=== PATIENT | male | born 1955 | race Caucasian/White ===

== ENCOUNTER 2018-01-25 00:24 | Inpatient (IN) | payer OTHER ==
[2018-01-24 15:08] LABS: INR 1.02
[2018-01-25] VITALS (10 sets, daily range): BP systolic 108–143; BP diastolic 56–77
[~2018-01-25] VITALS: Ht 175.3 cm; Wt 123.8 kg
[~2018-01-25 00:24] MED LIST: ALLO-119 PO; AMLO-99 PO; ASPI-1471 PO; BUSP15TA69 PO; CHOL10005 PO; DULO60CA56 PO; FURO-45 PO; MULT-1335 PO; NEBI20TA4 PO; OLME40TA28 PO; POTA-23 PO; SPIR25TA80 PO; TEST200V IM
[2018-01-25] MEDS ORDERED: fentaNYL CITR 250 MCG/5 ML AMP ONE (08:08)
[2018-01-25] MEDS ORDERED: DEXAMETHASONE SOD PHOS 10MG/ML ONE (08:09)
[2018-01-25] MEDS ORDERED: ONDANSETRON 4 MG/2 ML VIAL ONE (08:09)
[2018-01-25] MEDS ORDERED: PROPOFOL EMUL(*) 10MG/ML 20 ML 40 ML ONE (08:09)
[2018-01-25] MEDS ORDERED: KETAMINE HCL 200 MG/20 ML MDV ONE (08:11)
[2018-01-25] MEDS ORDERED: EPINEPHrine HCL 1 MG/ML AMP ONE (08:12)
[2018-01-25] MEDS ORDERED: ROPIVACAINE 0.2% 20 ML VIAL ONE (08:12)
[2018-01-25] MEDS ORDERED: LIDOCAINE 2% JELLY 5 ML TUBE ONE (08:14)
[2018-01-25] MEDS ORDERED: MIDAZOLAM 2 MG/2 ML VIAL IVP PRN (08:30)
[2018-01-25] MEDS ORDERED: ROPIVACAINE 0.2% 400 MG/200ML 250 ML CONINFUS ONE (08:30)
[2018-01-25] MEDS ORDERED: CELECOXIB 200 MG CAP PO ONE (08:30)
[2018-01-25] MEDS ORDERED: ACETAMINOPHEN 500 MG TAB PO ONE (08:30)
[2018-01-25] MEDS ORDERED: CLINDAMYCIN(*) 900 MG/NS 50 ML 50 ML IVPB ONE (08:30)
[2018-01-25] MEDS ORDERED: LIDOCAINE/SOD BICARB 8.4% SYR ID ONE (08:30)
[2018-01-25] MEDS ORDERED: TRANEXAMIC AC 1000 MG/10ML SDV 1,000 MG in DEXTROSE 5% 50 ML BAG 50 ML IV ONE (08:30)
[2018-01-25] MEDS ORDERED: cloNIDine EPIDUR INJ 100MCG/ML 40 MCG, ROPIVACAINE 0.5% 20 ML VIAL 25 ML, EPINEPHrine H... INJ ONE (08:30)
[2018-01-25] MEDS ORDERED: PREGABALIN 150 MG CAPSULE PO ONE (08:30)
[2018-01-25] MEDS ORDERED: FAMOTIDINE 20 MG TAB PO ONE (08:30)
[2018-01-25] MEDS ORDERED: NORMOSOL R SOLN(*) 1000 ML BAG 1,000 ML IV PRN ×2 (08:30→12:15)
[2018-01-25] MEDS ORDERED: SUGAMMADEX SOD 200 MG/2 ML SDV ONE (09:03)
[2018-01-25] MEDS ORDERED: ROCURONIUM BROM 10 MG/ML 5 ML ONE (09:30)
[2018-01-25] MEDS ORDERED: hydrALAZINE HCL 20 MG/ML VIAL ONE (10:32)
[2018-01-25] MEDS ORDERED: PROMETHAZINE 25 MG/ML 1 ML AMP IVP PRN (12:15)
[2018-01-25] MEDS ORDERED: BISACODYL 10 MG SUPP PR PRN (12:15)
[2018-01-25] MEDS ORDERED: FLUSH 10 ML SYR IVP PRN (12:15)
[2018-01-25] MEDS ORDERED: ZOLPIDEM TARTRATE 5 MG TAB PO PRN (12:15)
[2018-01-25] MEDS ORDERED: MORPHINE 4 MG/ML SDV IVP PRN (12:15)
[2018-01-25] MEDS ORDERED: ONDANSETRON 4 MG/2 ML VIAL IVP PRN (12:15)
--- NOTE | 2018-01-25 12:36 | CARSON TKA ---
EVENT DATE: January 25, 2018 SURGEON: Poncho Quinteros MD ANESTHESIOLOGIST: Bryant Kendrick M.D. ANESTHESIA: Right adductor block with indwelling catheter and general anesthesia. We also utilized 50 mL of our Toradol/ropivacaine cocktail after the implantation and 1 gram of IV tranexamic acid ten prior prior to start and at the end of the implantation. TICKET WORKER: Sourav Iniguez PA-C PREOPERATIVE DIAGNOSIS Right knee degenerative joint disease with previous quad tendon tear and repair. POSTOPERATIVE DIAGNOSIS Right knee degenerative joint disease with previous quad tendon tear and repair. PROCEDURE PERFORMED Right total knee arthroplasty. IMPLANTS MicroPort medial pivot shift CS system with a 6 femur, 6 tibia, 14 mm CS insert , 8x35 symmetric patella and femur cut 6 degrees valgus 10 mm. We also utilized two packages of DonJoy cobalt blue cement and ZipLine Wound Closure System. SPECIMENS None. COMPLICATIONS None. BLOOD LOSS Less than 250 mL. OPERATION The patient received appropriate preoperative antibiotic, was brought to the OR , where Dr. Kendrick performed right adductor block with indwelling catheter and general anesthesia. Right thigh tourniquet was placed. Right lower extremity was prepped and draped in the usual sterile fashion. Midline incision was made followed by medial parapatellar arthrotomy. We encountered significant scarring through the quad tendon around the medial retinaculum and throughout the suprapatellar pouch and medial lateral gutters. It took quite some time to release the scar tissue. I then dissected subperiosteally along the medial tibial plateau to the level of the semimembranosus insertion. Hypertrophic fat pad and scarring was excised. Patella was released. We excised some of the hypertrophied posterior tissue including a small portion of the quad tendon to enable the patella to be slid laterally. The knee was brought up into flexion. The ACL and PCL were released subperiosteally by Bovie. The remaining articular cartilage was removed from the distal femoral condyle by sagittal saw. Step cut drill was utilized to broach the femoral canal. Distal femoral alignment guide was then positioned, setting at 10 mm, 6 degrees valgus. Cut was made with care taken to protect the soft tissues. 3-degree external rotation guide was then positioned, referencing the posterior condyles, epicondyles and anterior flange. Femur was sized to #5. Four-in-one cutting block was positioned, followed by Z retractors. Cuts were made. The tibia was then brought anterior in the femur with appropriate retractors. Step-cut drill was utilized to broach the tibial canal. Then we placed the intramedullary tibial guide. The eduardo was referenced for slope. We set this up 10 mm off the least involved lateral tibial plateau and assessed for rotation. We pinned the block into the place and placed the retractors to protect the soft tissue and made our cut. This was sized to #6. The stump of the ACL, PCL and medial and lateral meniscus were removed by Bovie. Posterior osteophytes were removed by curved osteotome. The capsule was elevated with Ontiveros elevator. Trial #6 tibial baseplate was then positioned, referencing from previous rotation and pinned into place. 12 mm insert was then placed and this was then replaced with 14 mm insert. #5 femur was placed. This achieved full extension and stability to varus and valgus stress and solid end point and anterior drawer. The knee was brought into full extension. The patella was size 25 mm. This was cut down to 8 mm with the guide and peg hole was positioned inferiorly medially. Peg holes were drilled and this accepted 8x35 symmetric trial. Peg hole was drilled for the femur followed by cutting with chip. The chip was then placed. Again, we had the aforementioned full extension, flexion limited only by body habitus but got 130 degrees. He had stability to varus/valgus stress. The patella tracked well and a stable anterior drawer. Patella, femur and tibial insert were removed. Appropriate retractors were placed and tower was placed, which was then cut, reamed and punched. This was then removed and bone putty placed in the distal femur. The knee was brought to full extension. We copiously irrigated by pulse lavage. Two packages of DonJoy cobalt blue cement were mixed. We injected 10 mL ropivacaine/Toradol cocktail into the posterior capsule. We copiously irrigated once again. We placed the knee in appropriate position and cemented the tibia. We placed the insert and femur. Excess cement was removed. The knee was brought into full extension with axial compression while we cemented the patella. The remaining 40 mL of cocktail was then injected into the distal quads. We then copiously irrigated by pulse lavage. After 14 minutes, the cement had hardened. Again, we had the aforementioned range of motion and stability. The knee was placed at 30 degrees. Arthrotomy was closed with #2 Vicryl followed by 2-0 Vicryl for subcutaneous tissue and with the knee at 45 degrees and after cleaning the wounds we placed a ZipLine Wound Closure System. Compressive was applied. Patient extubated and taken to recovery in stable condition. Hospitalist team to be consulted for medical management and anticoagulation, PT for rehab MTDD
--- NOTE | 2018-01-25 13:23 | RADIOLOGY IMAGING REPORT ---
FACILITY: [facility] - [place] PATIENT NAME: Samson Cristina : 1955 MR: [id number] V: [id number] EXAM DATE: ORDERING PHYSICIAN: YUAN FREEMAN TECHNOLOGIST: Location: [facility] Patient: Samson Cristina : 1955 Visit/Account:[id number] Date of Sevice: 01/25/2018 Exam type: KNEE LIMITED RIGHT History: POST OP Comparison: None. Findings: Two views the right knee demonstrate a right knee arthroplasty in good anatomic alignment. Soft tiss ue gas projects over the anterior aspect this postoperative knee IMPRESSION: 1. As above Report Dictated By: Ericka Pabon MD at 01/25/2018 1:17 PM Report E-Signed By: Ericka Pabon MD at 01/25/2018 1:18 PM WSN:[id number]
[2018-01-25] MEDS ORDERED: POTA20TA85 PO (13:56)
[2018-01-25] MEDS ORDERED: OLME1TAB63 PO (13:56)
[2018-01-25] MEDS ORDERED: SPIR50TA33 PO (13:56)
--- NOTE | 2018-01-25 15:19 | Hospitalist Consultation ---
History of Present Illness Requesting Physician Dr. Quinteros Reason for Consult Medical Management Chief Complaint s/p right total knee replacement History of Present Illness He was admitted s/p right total knee replacement. It is reported the surgery went well and without complication. History Problems: (1) Asthma Status: Chronic (2) Depression Status: Chronic (3) Hypertension Status: Chronic (4) MAURA (obstructive sleep apnea) Status: Chronic (5) Gout Status: Chronic Home Meds Reported Medications Olmesartan/Hydrochlorothiazide (BENICAR HCT 40-25 MG TABLET) 1 Each Tablet, 1 EACH PO DAILY 01/25/18 Potassium Chloride (KLOR-CON M20) 20 Meq Tab.er.prt, 3 TAB PO QDAY 01/25/18 Spironolactone (SPIRONOLACTONE) 50 Mg Tablet, 50 MG PO QDAY with dinner 01/25/18 Testosterone Cypionate (TESTOSTERONE CYPIONATE) 200 Mg/1 Ml Vial, 200 MG IM Q2WK , VIAL 01/14/18 Cholecalciferol (Vitamin D3) (VITAMIN D3) 1,000 Unit Tablet, 1000 UNIT PO, TAB 01/14/18 Multivitamin With Minerals (MULTIPLE VITAMIN) 1 Each Tablet, 1 EACH PO, TAB 01/14/18 Aspirin (ASPIR 81) 81 Mg Tablet.dr, 81 MG PO QDAY, TAB 01/14/18 Furosemide (FUROSEMIDE) 20 Mg Tablet, 1 TAB PO QDAY, TAB 01/14/18 Nebivolol Hcl (BYSTOLIC) 20 Mg Tablet, 20 MG PO DAILY 01/14/18 Duloxetine Hcl (CYMBALTA) 60 Mg Capsule.dr, 60 MG PO QDAY, #5 CAP 01/14/18 Amlodipine Besylate (AMLODIPINE BESYLATE) 10 Mg Tablet, 1 TAB PO QDAY, TAB 01/14/18 Buspirone Hcl (BUSPIRONE HCL) 15 Mg Tablet, 15 MG PO BID, #10 TAB 01/14/18 Allopurinol (ZYLOPRIM) 300 Mg Tablet, 300 MG PO QDAY, TAB 01/14/18 Discontinued Reported Medications Potassium Chloride (KLOR-CON 10) 10 Meq Tablet.er, 20 MEQ PO TID 01/14/18 Olmesartan Medoxomil (BENICAR) 40 Mg Tablet, 40 MG PO 01/14/18 Spironolactone (SPIRONOLACTONE) 25 Mg Tablet, 50 MG PO QDAY, TAB 01/14/18 Allergies: Coded Allergies: Penicillins (Verified Allergy, Unknown, 01/14/18) Uncoded Allergies: TAPE (Allergy, Unknown, 01/14/18) Patient History: FH: heart attack FATHER FH: hypertension FATHER MOTHER FH: ovarian cancer MOTHER Hx Smoking: Yes (QUIT 2006, 1PPD, FOR 30 YRS ) Smoking Status: Former Smoker Caffeine Intake: Coffee Caffeine/Cups Per Day: 2 CPD Hx Alcohol Use: Yes (ONE PER NIGHT ) Alcohol Used: Liquor Hx Substance Use Disorder: No Review of Systems All Systems Reviewed/Normal: Yes, Except as Noted Exam Vital Signs Vital Signs Date Time Temp Pulse Resp B/P (MAP) Pulse Ox O2 Delivery O2 Flow Rate FiO2 01/25/18 13:33 99.1 70 12 108/56 (73) 92 Nasal Cannula 3.0 General Appearance: Alert, Awake, No Acute Distress, Afebrile Neuro: No Gross deficits Cardiovascular: Regular Rate and Rhythm Respiratory: No Respiratory Distress, Clear to Auscultation Psych: Alert & Oriented X3 Assessment and Plan Problems: (1) Status post total right knee replacement Status: Acute Assessment & Plan: Followed by Dr. Quinteros. He will be placed on Aspirin for VTE prophylaxis. He has no history of DVT or PE. (2) Hypertension Status: Chronic Assessment & Plan: He is on chronic treatment with Amlodipine, Bystolic, Benicar, Lasix, and Spironolactone. The amlodipine and Bystolic have been restarted with hold parameters. Benicar, Lasix, and Spironolactone have been held at this time. (3) Asthma Status: Chronic Assessment & Plan: Exercise induced. Doesn't usually require treatment. (4) Depression Status: Chronic Assessment & Plan: He is on chronic treatment with Buspirone and Cymbalta. (5) Gout Status: Chronic Assessment & Plan: He is on chronic treatment with Allopurinol. (6) MAURA (obstructive sleep apnea) Status: Chronic Assessment & Plan: He is on chronic treatment with CPAP, with 2 liters bleed in. Venous Thromboembolism Antithrombotics Is Pt On Any Antithrombotics?: No Exam Sepsis Risk: No Definite Risk ALBINA SULLIVANP Jan 25, 2018 15:19
[2018-01-25] MEDS: ACETAMINOPHEN 500 MG TAB PO SCH (16:00)
[2018-01-25] MEDS ORDERED: NS(*) 0.9% 250 ML BAG 250 ML ONE (17:35)
[2018-01-25] MEDS: CLINDAMYCIN(*) 600 MG/NS 50 ML 50 ML IVPB SCH (17:37)
[2018-01-25] MEDS ORDERED: NS(*) 0.9% 250 ML BAG 250 ML IVPB PRN (17:45)
[2018-01-25] MEDS: INSULIN HUM LISPRO 100 UN/ML 3 ML VIAL SUBQ PRN (20:25)
[2018-01-25] MEDS: oxyCODONE HCL 5 MG CAP PO PRN (21:27)
[2018-01-25] MEDS: KETOROLAC TROM 10MG TAB PO PRN (22:48)
[2018-01-26 00:30] VITALS: BP 121/71
[2018-01-26] MEDS: CLINDAMYCIN(*) 600 MG/NS 50 ML 50 ML IVPB SCH ×2 (00:47→08:18)
[2018-01-26] MEDS: ACETAMINOPHEN 500 MG TAB PO SCH ×3 (00:47→15:39)
[2018-01-26] MEDS: oxyCODONE HCL 5 MG CAP PO PRN ×4 (01:29→21:16)
[2018-01-26 03:45] VITALS: BP 114/58
[2018-01-26 08:02] VITALS: BP 121/71
[2018-01-26] MEDS ORDERED: NS(*) 0.9% 500 ML BAG 500 ML IV ONE (08:15)
--- NOTE | 2018-01-26 08:15 | Hospitalist Progress Note ---
Subjective Progress Notes Subjective No cp/sob. No concerns from patient or staff. Physical Exam Vital Signs Date Time Temp Pulse Resp B/P (MAP) Pulse Ox O2 Delivery O2 Flow Rate FiO2 01/26/18 03:45 99.0 57 12 114/58 (76) 96 CPAP 2.5 General Appearance: Alert, Awake, No Acute Distress Result Diagram: 01/26/18 0600 01/26/18 0600 Assessment and Plan Problems: (1) Status post total right knee replacement Status: Acute Assessment & Plan: Followed by Dr. Quinteros. He will be placed on Aspirin for VTE prophylaxis. He has no history of DVT or PE. (2) Hyperkalemia Status: Acute Assessment & Plan: Secondary to chronic spironolactone and potassium use. Will hold those medications and follow. (3) Elevated serum creatinine Status: Acute Assessment & Plan: Pre-op creatinine was 1.2. It is 1.5 today. Holding chronic spironolactone/Benicar/HCT. Will give a fluid bolus and follow. (4) Hypertension Status: Chronic Assessment & Plan: He is on chronic treatment with Amlodipine, Bystolic, Benicar, Lasix, and Spironolactone. The amlodipine and Bystolic have been restarted with hold parameters. Benicar, Lasix, and Spironolactone have been held at this time. (5) Asthma Status: Chronic Assessment & Plan: Exercise induced. Doesn't usually require treatment. (6) Depression Status: Chronic Assessment & Plan: He is on chronic treatment with Buspirone and Cymbalta. (7) Gout Status: Chronic Assessment & Plan: He is on chronic treatment with Allopurinol. (8) MAURA (obstructive sleep apnea) Status: Chronic Assessment & Plan: He is on chronic treatment with CPAP, with 2 liters bleed in. Exam Sepsis Risk: No Definite Risk QUINCY ALMONTE MD Jan 26, 2018 08:15
[2018-01-26] MEDS: ASPIRIN 325 MG ENTERIC COATED PO SCH (08:17)
[2018-01-26] MEDS: ALLOPURINOL 300 MG TAB PO SCH (08:17)
[2018-01-26] MEDS: busPIRone HCL 5 MG TAB PO SCH ×2 (08:17→21:14)
[2018-01-26] MEDS: DULoxetine HCL 30 MG CAPCR PO SCH (08:17)
[2018-01-26] MEDS: NEBIVOLOL HCL 5 MG TAB PO SCH (08:18)
[2018-01-26] MEDS: KETOROLAC TROM 10MG TAB PO PRN ×2 (08:18→19:32)
[2018-01-26] MEDS: amLODIPine BESYL(*) 5 MG TAB PO SCH (08:18)
[2018-01-26] MEDS: MAGNESIUM HYDROXIDE* 30ML UDCP PO PRN ×2 (09:29→21:17)
[2018-01-26 11:13] VITALS: BP 119/64
[2018-01-26] MEDS: INSULIN HUM LISPRO 100 UN/ML 3 ML VIAL SUBQ PRN ×3 (11:52→21:17)
[2018-01-26 14:17] VITALS: Ht 175.3 cm; Wt 123.8 kg
[2018-01-26 15:37] VITALS: BP 116/57
[2018-01-26 19:33] VITALS: BP 113/64
[2018-01-27 00:02] VITALS: BP 137/73
[2018-01-27 03:25] VITALS: BP 125/66
[2018-01-27] MEDS: KETOROLAC TROM 10MG TAB PO PRN ×2 (03:29→12:00)
[2018-01-27 07:20] VITALS: BP 119/67
[2018-01-27] MEDS: oxyCODONE HCL 5 MG CAP PO PRN ×2 (07:32→12:04)
[2018-01-27] MEDS ORDERED: POTA20TA94 PO (08:03)
[2018-01-27] MEDS ORDERED: ASPI-764 PO (08:04)
--- NOTE | 2018-01-27 08:12 | Hospitalist Progress Note ---
Subjective Progress Notes Subjective No new complaints. Physical Exam Vital Signs Date Time Temp Pulse Resp B/P (MAP) Pulse Ox O2 Delivery O2 Flow Rate FiO2 01/27/18 07:20 98.8 83 20 119/67 (84) 90 Room Air 01/27/18 00:02 3.0 Intake and Output 01/28/18 07:00 Output Total 260 ml Balance -260 ml Output Urine Total 260 ml General Appearance: Alert, Awake, No Acute Distress Neuro: No Gross deficits Eyes: PERRLA Psych: Appropriate Mood & Affect Result Diagram: 01/27/1861701/27/18617 Assessment and Plan Problems: (1) Status post total right knee replacement Status: Acute Assessment & Plan: Followed by Dr. Quinteros. He will be placed on Aspirin 325mg daily for VTE prophylaxis. He has no history of DVT or PE. (2) Hyperkalemia Status: Acute Assessment & Plan: Secondary to chronic spironolactone and potassium use. Potassium is normal today. The patient states his potassium is usually low despite being on spironolactone and and ARB. Will restart with a lower dose of potassium. (3) Elevated serum creatinine Status: Acute Assessment & Plan: Pre-op creatinine was 1.2. It is 1.5 today. Holding chronic spironolactone/Benicar/HCT. Will give a fluid bolus and follow. (4) Hypertension Status: Chronic Assessment & Plan: He is on chronic treatment with Amlodipine, Bystolic, Benicar, Lasix, and Spironolactone. The amlodipine and Bystolic have been restarted with hold parameters. Benicar, Lasix, and Spironolactone were initially held. His creatinine has improved and his potassium level has normalized. (5) Asthma Status: Chronic Assessment & Plan: Exercise induced. Doesn't usually require treatment. (6) Depression Status: Chronic Assessment & Plan: He is on chronic treatment with Buspirone and Cymbalta. (7) Gout Status: Chronic Assessment & Plan: He is on chronic treatment with Allopurinol. (8) MAURA (obstructive sleep apnea) Status: Chronic Assessment & Plan: He is on chronic treatment with CPAP, with 2 liters bleed in. Time Spent on Plan of Care: < 30 min Exam Sepsis Risk: No Definite Risk NITHIN LINK MD Jan 27, 2018 08:12
[2018-01-27] MEDS: ASPIRIN 325 MG ENTERIC COATED PO SCH (08:36)
[2018-01-27] MEDS: ACETAMINOPHEN 500 MG TAB PO SCH ×2 (08:36)
[2018-01-27] MEDS: amLODIPine BESYL(*) 5 MG TAB PO SCH ×2 (08:36→08:45)
[2018-01-27] MEDS: busPIRone HCL 5 MG TAB PO SCH (08:37)
[2018-01-27] MEDS: ALLOPURINOL 300 MG TAB PO SCH (08:37)
[2018-01-27] MEDS: DULoxetine HCL 30 MG CAPCR PO SCH (08:37)
[2018-01-27] MEDS: NEBIVOLOL HCL 5 MG TAB PO SCH ×2 (08:37→08:45)
[2018-01-27 08:44] VITALS: BP 130/63
[2018-01-27] MEDS ORDERED: OXYC-865 PO (10:56)
== END 2018-01-27 11:08 | disposition home or self-care (01) | DRG 470 ==
LOC: OR 00:24 → UNDOADMOB 13:25 → OBSVTOIN 13:25 → MED 13:25 → INTOOBSV 13:25 → UNDODISOB 01-27 11:08
PROVIDERS: ADMIT Orthopaedic Surgery; ATTEND Orthopaedic Surgery
PROC: 0SRC0J9 Replacement of Right Knee Joint with Synthetic Substitute, Cemented, Open Approach (ICD-10-PCS; principal; 2018-01-25 09:31)
DX: M17.11 Unilateral primary osteoarthritis, right knee (principal); Z68.41 Body mass index [BMI] 40.0-44.9, adult; I10 Essential (primary) hypertension; E66.01 Morbid (severe) obesity due to excess calories; G47.33 Obstructive sleep apnea (adult) (pediatric); E11.9 Type 2 diabetes mellitus without complications; M1A.9XX0 Chronic gout, unspecified, without tophus (tophi); J45.909 Unspecified asthma, uncomplicated; E87.5 Hyperkalemia; T50.0X5A Adverse effect of mineralocorticoids and their antagonists, initial encounter; T50.3X5A Adverse effect of electrolytic, caloric and water-balance agents, initial encounter; F32.9 Major depressive disorder, single episode, unspecified; Z88.0 Allergy status to penicillin; Z99.81 Dependence on supplemental oxygen
CPT/HCPCS: 36415; 36416; 82310; 82374; 82435; 82565; 82947; 82948; 84132; 84295; 84520; 85014; 85018; 85610; 86850; 86900; 86901; 97161; G0378; J0171; J0360; J0735; J1100; J1885; J2250; J2405; J2704; J2795; J3010; J3490; J7040; J7050; J7060

== ENCOUNTER 2018-04-01 01:49 | Day surgery (SDC) | payer OTHER ==
[2018-01-26 14:17] VITALS: Ht 175.3 cm; Wt 122.5 kg
[2018-04-01] VITALS (11 sets, daily range): BP systolic 101–135; BP diastolic 60–80
[~2018-04-01] VITALS: Ht 175.3 cm; Wt 122.5 kg
[~2018-04-01 01:49] MED LIST changes: +AMLO-113 PO; -AMLO-99 PO; +ASPI-764 PO; +OLME1TAB63 PO; +OXYC-865 PO; +POTA20TA85 PO; +POTA20TA94 PO; +SPIR50TA33 PO
[2018-04-01] MEDS ORDERED: CELECOXIB 200 MG CAP PO ONE (06:15)
[2018-04-01] MEDS ORDERED: NORMOSOL R SOLN(*) 1000 ML BAG 1,000 ML IV PRN (06:15)
[2018-04-01] MEDS ORDERED: LIDOCAINE/SOD BICARB 8.4% SYR ID ONE (06:15)
[2018-04-01] MEDS ORDERED: CLINDAMYCIN(*) 600 MG/NS 50 ML 50 ML IVPB ONE (06:15)
[2018-04-01] MEDS ORDERED: MIDAZOLAM 2 MG/2 ML VIAL IVP PRN (06:15)
[2018-04-01] MEDS ORDERED: FAMOTIDINE 20 MG TAB PO ONE (06:15)
[2018-04-01] MEDS ORDERED: fentaNYL CITR 100 MCG/2 ML AMP ONE ×2 (06:30→08:41)
[2018-04-01] MEDS ORDERED: PROPOFOL EMUL(*) 10MG/ML 20 ML 20 ML ONE (06:31)
[2018-04-01] MEDS ORDERED: LIDOCAINE 2% IV 100 MG/5ML SYR ONE (06:31)
[2018-04-01] MEDS ORDERED: ROPIVACAINE 0.2% 20 ML VIAL ONE (07:03)
[2018-04-01] MEDS ORDERED: BETAMETHASONE/ACETATE 6 MG/1ML ONE (07:03)
[2018-04-01] MEDS ORDERED: SUCCINYLCHOL CHL 200MG/10ML VL ONE (07:15)
[2018-04-01] MEDS ORDERED: ONDANSETRON 4 MG/2 ML VIAL ONE (07:15)
[2018-04-01] MEDS ORDERED: KETOROLAC 30 MG/ML VIAL ONE (07:38)
[2018-04-01] MEDS ORDERED: KET10 PO (07:53)
[2018-04-01] MEDS ORDERED: OXYC-865 PO (07:53)
--- NOTE | 2018-04-01 08:25 | OPERATIVE REPORT 1 ---
EVENT DATE: April 01, 2018 SURGEON: Poncho Quinteros MD ANESTHESIOLOGIST: Linden Little MD ANESTHESIA: General. 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 PROCEDURE PERFORMED Manipulation under anesthesia. DESCRIPTION OF PROCEDURE The patient was brought to the operating room where Dr. Little performed general anesthesia with a paralytic agent. We then fully extended the knee with subtle crepitation. He had lacked about 3-degrees from full extension and now he had full. We then brought the hip up to 90-degrees with flexion and with a anterior posterior directed force on the proximal tibia, we slowly brought the knee into approximately 130-degrees of flexion with subtle crepitation noted. We then placed the knee at 90-degrees, prepped the anterolateral aspect of the knee in the usual sterile fashion with alcohol and Betadine, and then injected into the knee 2 cc of Betamethasone and 20 cc of Ropivacaine. We then placed a band-aid. The patient was extubated and taken to the recovery room in stable condition. Postoperatively, he reports there was no pain in the knee. His motor sensory was intact distally. X-rays are pending. He will be started on protocol daily therapy for range of motion and strengthening. He is given Toradol 10 mg #10 for pain along with Percocet 5/325 mg #20 for pain. Will follow him up next week in clinic. It should also be noted there was no implants, no blood loss. [facility]
--- NOTE | 2018-04-01 08:41 | RADIOLOGY IMAGING REPORT ---
FACILITY: [facility] - [place] PATIENT NAME: Samson Cristina : 1955 MR: [id number] V: [id number] EXAM DATE: ORDERING PHYSICIAN: YUAN FREEMAN TECHNOLOGIST: Location: [facility] [place] Patient: Samson Cristina : 1955 Visit/Account:[id number] Date of Sevice: 04/01/2018 Right knee Indication: Postmanipulation Comparison: X-ray examination of the right knee from January 25, 2018 Findings: 2 views right knee are submitted. Operative change status post right total knee arthroplasty. Compone nts are well seated and aligned appropriately. There is a moderate to large joint effusion. IMPRESSION: 1. Moderate to large joint effusion without acute osseous finding. Report Dictated By: Brian Harris MD at 04/01/2018 8:08 AM Report E-Signed By: Brian Harris MD at 04/01/2018 8:09 AM WSN:[id number]
== END 2018-04-01 09:05 | disposition home or self-care (01) ==
LOC: OR 01:49
PROVIDERS: ATTEND Orthopaedic Surgery
DX: M24.661 Ankylosis, right knee (principal); E66.01 Morbid (severe) obesity due to excess calories; I10 Essential (primary) hypertension; G47.33 Obstructive sleep apnea (adult) (pediatric); Z99.81 Dependence on supplemental oxygen; M1A.9XX0 Chronic gout, unspecified, without tophus (tophi); F32.9 Major depressive disorder, single episode, unspecified; E11.9 Type 2 diabetes mellitus without complications; Z96.651 Presence of right artificial knee joint; Z68.39 Body mass index [BMI] 39.0-39.9, adult
CPT/HCPCS: 27570; 73560; 97110; J0330; J0702; J1885; J2001; J2405; J2704; J2795; J3010